=== PATIENT | female | born 1950 | race Hispanic/Latino ===

== ENCOUNTER → 2020-10-05 | Outpatient (RCR) | payer MEDICARE ==
[~2020-10-05] MED LIST: ADVAIR 100-501 EACH; BIOTIN1 MG PO; CALCIUM 600 +1 EAC9 PO; CALCIUM500 MG PO; LEXAPRO10 MG PO; OSTEO BI-FLEX1 EAC2 PO; PRAVASTATIN SOD20 MG PO; PRESERVISION T1 EACH PO; TRAZODONE HCL50 MG PO
== END ==
LOC: PT 09-06 12:58
PROVIDERS: ATTEND Physician Assistant
DX: M47.812 Spondylosis without myelopathy or radiculopathy, cervical region (principal)

== ENCOUNTER 2020-10-26 12:58 | Outpatient (RCR) | payer MEDICARE | END 2020-11-04 | LOC: PT 12:58 | PROVIDERS: ATTEND Physician Assistant | DX: M47.892 Other spondylosis, cervical region (principal); M47.812 Spondylosis without myelopathy or radiculopathy, cervical region; M62.81 Muscle weakness (generalized); M53.82 Other specified dorsopathies, cervical region ==

== ENCOUNTER → 2021-09-08 | Day surgery (SDC) | payer MEDICARE ==
[2021-09-07 11:43] LABS: BASOPHILS % 0.8 % (0.0-1.0); EOSINOPHILS # (AUTO) 0.1 (0.0-0.4); EOSINOPHILS % 1.2 % (0.0-6.0); HEMATOCRIT 37.5 % (34.2-44.1); HEMOGLOBIN 13.1 g/dL (12.0-16.0); LYMPHOCYTES # (AUTO) 1.6 (1.0-3.2); MEAN CORPUSCULAR HEMOGLOBIN 34.9 pg (28-32); MEAN CORPUSCULAR HGB CONC 34.9 g/dL (31-35); MONOCYTES # (AUTO) 0.7 (0.2-0.8); MONOCYTES % 13.5 % (4.4-11.3); NEUTROPHILS # (AUTO) 2.4 (2.1-6.9); NEUTROPHILS % 50.5 % (38.7-80.0); PLATELET COUNT 219 x10e3/uL (140-360); RED BLOOD COUNT 3.75 x10e6/uL (3.6-5.1); RED CELL DISTRIBUTION WIDTH 12.6 % (11.7-14.4)
[2021-09-07 12:01] LABS: ANION GAP 9.1 mmol/L (8-16); CALCIUM 8.4 mg/dL (8.4-10.2); CREATININE, SERUM 0.8 mg/dL (0.57-1.11); POTASSIUM 4.1 mmol/L (3.5-5.1)
[~2021-09-08] MED LIST changes: +BIOFLEX TABLET1 EACH PO; +BUPIVACAINE HCL 0.5% INJ 30 ML VIAL INJ ONE; +CALCIUM ACETAT667 MG PO; +DEXAMETHASONE SOD PHOS INJ 4 MG/ML SDV ONE; +DOXYCYCLINE HY100 MG PO; +EPHEDRINE SULFATE INJ 50 MG/ML VIAL ONE; +FENTANYL CITRATE/PF 100MCG/2 ML INJ ONE; +FLUOXETINE HCL20 M1 PO; +IBANDRONATE SO150 MG PO; +KETOROLAC TROMETHAMINE 30 MG/ML VIAL ONE; +LEVOCETIRIZINE D5 MG PO; +LIDOCAINE HCL 2% LOCAL INJ 5 ML SDV VIAL INJ ONE; +NEOSTIGMINE 1 MG/ML 10ML VIAL ONE; +ONDANSETRON HCL INJ 2MG/ML 2ML 2 MG/ML VIAL ONE; +PANTOPRAZOLE SO40 MG PO; +POVIDONE IODINE 0.05% 0.05 % ML PO ONE; +PROPOFOL IV EMULSION 10 MG/ML 20 ML VIAL ONE; +SODIUM CHLORIDE 0.9% 50ML 100 ML ONE; +TERBINAFINE HC250 MG PO
[2021-09-08 14:05] VITALS: BP 132/74
== END | disposition home or self-care (01) ==
LOC: OR 08:13
PROVIDERS: ATTEND Podiatrist Foot Surgery
DX: M20.32 Hallux varus (acquired), left foot (principal); M19.072 Primary osteoarthritis, left ankle and foot; E11.9 Type 2 diabetes mellitus without complications; E78.6 Lipoprotein deficiency; K21.9 Gastro-esophageal reflux disease without esophagitis; F41.9 Anxiety disorder, unspecified; F32.A Depression, unspecified; Z01.810 Encounter for preprocedural cardiovascular examination; Z01.812 Encounter for preprocedural laboratory examination; Z01.818 Encounter for other preprocedural examination; Z20.822 Contact with and (suspected) exposure to COVID-19; Z79.899 Other long term (current) drug therapy
CPT/HCPCS: 28750; 36415 ×2; 71046; 76000; 80048; 82948; 85025; 93005; C1713 ×7; J0690; J1100; J1885; J2001; J2405; J2704; J2710; J3010; U0002

== ENCOUNTER 2022-07-30 13:00 | Outpatient (RCR) | payer MEDICARE ==
[~2022-07-30 13:00] MED LIST changes: -BUPIVACAINE HCL 0.5% INJ 30 ML VIAL INJ ONE; -DEXAMETHASONE SOD PHOS INJ 4 MG/ML SDV ONE; -EPHEDRINE SULFATE INJ 50 MG/ML VIAL ONE; -FENTANYL CITRATE/PF 100MCG/2 ML INJ ONE; -KETOROLAC TROMETHAMINE 30 MG/ML VIAL ONE; -LIDOCAINE HCL 2% LOCAL INJ 5 ML SDV VIAL INJ ONE; -NEOSTIGMINE 1 MG/ML 10ML VIAL ONE; -ONDANSETRON HCL INJ 2MG/ML 2ML 2 MG/ML VIAL ONE; -POVIDONE IODINE 0.05% 0.05 % ML PO ONE; -PROPOFOL IV EMULSION 10 MG/ML 20 ML VIAL ONE; -SODIUM CHLORIDE 0.9% 50ML 100 ML ONE
== END 2022-08-07 ==
LOC: PT 13:00
PROVIDERS: ATTEND Physician Assistant
DX: S33.5XXD Sprain of ligaments of lumbar spine, subsequent encounter (principal); M54.50 Low back pain, unspecified
CPT/HCPCS: 97010 ×5; 97110 ×6; 97140 ×4; 97162; G0283

== ENCOUNTER → 2022-08-14 | Outpatient (CLI) | payer MEDICARE | LOC: MRI 13:39 | PROVIDERS: ATTEND Physician Assistant | DX: S33.5XXD Sprain of ligaments of lumbar spine, subsequent encounter (principal) | CPT/HCPCS: 72146; 72148 ==

== ENCOUNTER 2022-09-03 12:55 | Outpatient (RCR) | payer MEDICARE | END 2022-09-04 | LOC: PT 12:55 | PROVIDERS: ATTEND Physician Assistant | DX: M54.50 Low back pain, unspecified (principal); S33.5XXD Sprain of ligaments of lumbar spine, subsequent encounter | CPT/HCPCS: 97010 ×10; 97110 ×10; 97140 ×6; G0283 ×8 ==

== ENCOUNTER 2022-09-10 12:50 | Outpatient (RCR) | payer MEDICARE | END 2022-10-05 | LOC: PT 12:50 | PROVIDERS: ATTEND Physician Assistant | DX: S33.5XXD Sprain of ligaments of lumbar spine, subsequent encounter (principal) ==